=== PATIENT | female | born 1985 | race Caucasian/White ===

== ENCOUNTER → 2016-06-22 | Outpatient (CLI) | payer BC ==
--- NOTE | 2016-06-22 14:15 | KCIC ---
Examination: Ultrasound abdomen complete and ultrasound pelvis. HISTORY History of epigastric pain 3, pelvic pain. COMPARISON None under Findings: The uterus measures 12.0 x 5.3 x 5.8 centimeters. The endometrium measures 1.2 centimeters in transverse dimension. The right ovary measures 3.9 x 2.7 x 5.0 centimeters The left ovary measures 2.3 x 2.0 x 3.1 centimeters. Blood flow identified in the right and left ovaries. Small amount of free fluid identified in the cul-de-sac. In the right ovary, there is a complex appearing septated nodule with some vascularity identified measuring 3.1 x 2.7 x 3.6 centimeters. The visualized pancreas grossly appears unremarkable. The visualized aorta, IVC appear patent. The right lobe of the liver measures 16.7 centimeters. There is mild increased echogenicity noted throughout the liver likely hepatic steatosis. The right kidney measures 11.7 x 4.4 x 6.0 centimeters. The left kidney measures 11.5 x 4.9 x 4.7 centimeters. No evidence of gallstones identified. The gallbladder wall thickness measures 1.8 millimeters. The common bile duct measures 5.6 millimeters in transverse dimension. The spleen measures 10.2 centimeters in length. IMPRESSION - Complex appearing septated nodule identified in the right ovary measuring 3.1 x 2.7 x 3.6 centimeters with some vascular flow within, could be a complex cystic lesion or cyst containing thrombus or mass within. MRI pelvis is recommended for better evaluation. - Small amount of free fluid identified in the cul-de-sac. - Mild hepatic steatosis. - No evidence of gallstones. Electronically signed by: Kavin Davis (Jun 22, 2016 14:14:03)
== END | disposition home or self-care (01) ==
LOC: KCIC US 09:34
PROVIDERS: ATTEND Nurse Practitioner Family
DX: R10.13 Epigastric pain (principal); R53.83 Other fatigue
CPT/HCPCS: 76700; 76856

== ENCOUNTER 2016-08-02 07:35 | Observation (INO) | payer BC ==
[~2016-08-02] VITALS: Ht 157.5 cm; Wt 73.9 kg
[2016-08-02] VITALS (8 sets, daily range): BP systolic 107–116; BP diastolic 60–68
[~2016-08-02 07:35] MED LIST: BUPIVACAINE-EPI 0.25%-1:200000 MPF 30 ML VIAL. ONE; ESTROGENS, CONJ VAGINAL CREAM 30GM TUBE. ONE; HYDROmorphone 2 MG/ML VIAL IV PRN; IV RINGERS,LACTATED 1000ML 1,000 ML IV SCH; LIDOCAINE 1% 1 ML SYRINGE. ID PRN; LIDOCAINE 1%/EPI 1:100,000 20 ML VIAL. ONE; METHYLENE BLUE 1% 1 ML VIAL. ONE; MORPHINE SULFATE 2 MG/ML DISP.SYRIN. IV PRN; ONDANSETRON PF 4 MG/2 ML VIAL. IV PRN; PROCHLORPERAZINE 10 MG/2 ML VIAL. IV PRN; SURGICEL HEMOSTAT 4X8 EACH. ONE; fentaNYL PF VIAL 100 MCG/2 ML VIAL IV PRN
[2016-08-02 08:36] LABS: BASO # 0.1 x10^3/uL (0.0-0.2); BASO % 1 % (0-3); EOS % 7 % (0-3); HEMATOCRIT 39.5 % (36.0-47.0); HEMOGLOBIN 12.6 g/dL (12.0-15.5); LYMPH # 1.3 x10^3/uL (1.0-4.8); LYMPH % 22 % (24-48); MEAN CORPUSCULAR HEMOGLOBIN 25 pg (25-35); MEAN CORPUSCULAR HGB CONC 32 g/dL (31-37); MEAN CORPUSCULAR VOLUME 78 fL (79-100); MONO % 12 % (0-9); NEUT % 59 % (31-73); PLATELET COUNT 362 x10^3/uL (140-400); RED BLOOD COUNT 5.04 x10^6/uL (3.50-5.40); RED CELL DISTRIBUTION WIDTH 16.8 % (11.5-14.5); WHITE BLOOD COUNT 6.2 x10^3/uL (4.0-11.0)
[2016-08-02] MEDS ORDERED: LIDOCAINE 2% 100 MG/5 ML SYRINGE. ONE (09:14)
[2016-08-02] MEDS ORDERED: ROCURONIUM 50 MG/5 ML VIAL. ONE (09:14)
[2016-08-02] MEDS ORDERED: DEXAMETHASONE SOD PHOS 20 MG/5 ML VIAL. ONE (09:14)
[2016-08-02] MEDS ORDERED: fentaNYL PF VIAL 100 MCG/2 ML VIAL ONE ×2 (09:14→10:44)
[2016-08-02] MEDS ORDERED: ONDANSETRON PF 4 MG/2 ML VIAL. ONE (09:14)
[2016-08-02] MEDS ORDERED: MIDAZOLAM HCL/PF 2 MG/2 ML VIAL. ONE (09:14)
[2016-08-02] MEDS ORDERED: PROPOFOL 20 ML IV ONE (09:14)
[2016-08-02] MEDS ORDERED: FAMOTIDINE 20 MG/2 ML VIAL ONE (09:14)
[2016-08-02 09:20] LABS: NEG OBC UR NEG; POS OBC UR POS
[2016-08-02] MEDS ORDERED: ACETAMINOPHEN INTRAVENOUS 100 ML IV ONE (09:41)
[2016-08-02] MEDS ORDERED: PHENYLEPHRINE in 0.9% NACL PF 1 MG/10 ML DISP.SYRIN. IV ONE (09:45)
[2016-08-02] MEDS ORDERED: VASOPRESSIN 20 UNIT/ML VIAL. ONE (09:48)
[2016-08-02] MEDS ORDERED: 0.9 % SODIUM CHLORIDE 50 ML VIAL. IJ ONE (09:49)
[2016-08-02] MEDS ORDERED: ePHEDrine PF IN SALINE 50 MG/5 ML DISP.SYRIN IV ONE (09:52)
[2016-08-02] MEDS ORDERED: NEOSTIGMINE METHYLSULFATE 5 MG/5 ML SYRINGE. ONE (11:00)
[2016-08-02] MEDS ORDERED: GLYCOPYRROLATE 1 MG/5 ML VIAL. ONE (11:00)
[2016-08-02] MEDS ORDERED: diphenhydrAMINE 50 MG/ML VIAL ONE (11:14)
[2016-08-02] MEDS ORDERED: SEVOFLURANE > 120 MINUTES. IH ONE (11:36)
--- NOTE | 2016-08-02 11:39 | PDOC ---
BRIEF OPERATIVE NOTE Pre-Op Diagnosis 1. Fibroid 2. AUB 3. Dyspareunia 4. ROV Cyst Post-Op Diagnosis Same Procedure Performed TLH & RSO via [employer] Robot Surgeon Dr. Pack Home Manager Lani Anesthesia Type: General Blood Loss 25 ml Specimens Obtained uterus, cervix, RIght fallopian tube and ROV Findings enlarged fibroid uterus, nml fallopian tubes juventino., ROV cyst; nml ELIZABETH Complications none Additional Remarks pt. YOUNG Ibarra Jr, MD August 02, 2016 11:39
[2016-08-02] MEDS ORDERED: DEXTROSE 50% 25 GM / 50ML DISP.SYRIN. IV PRN (11:45)
[2016-08-02] MEDS ORDERED: ONDANSETRON PF 4 MG/2 ML VIAL. IV PRN (11:45)
[2016-08-02] MEDS ORDERED: CALCIUM CARBONATE 500 MG TAB.CHEW PO PRN (11:45)
[2016-08-02] MEDS ORDERED: PROCHLORPERAZINE 10 MG/2 ML VIAL. IV PRN (11:45)
[2016-08-02] MEDS ORDERED: OXYCODONE/APAP 5/325 TABLET. PO PRN (11:45)
[2016-08-02] MEDS ORDERED: KETOROLAC TROMETHAMINE 30 MG/ML INJ. IV PRN (11:45)
[2016-08-02] MEDS ORDERED: diphenhydrAMINE HCL 25 MG CAPSULE PO PRN (11:45)
[2016-08-02] MEDS ORDERED: 0.9 % SODIUM CHLORIDE 10 ML DISP.SYRIN. IV PRN (11:45)
[2016-08-02] MEDS ORDERED: SIMETHICONE 80 MG TAB.CHEW PO PRN (11:45)
[2016-08-02] MEDS ORDERED: diphenhydrAMINE 50 MG/ML VIAL IV PRN (11:45)
[2016-08-02] MEDS ORDERED: ZOLPIDEM 5 MG TABLET. PO PRN (11:45)
[2016-08-02] MEDS: fentaNYL PF VIAL 100 MCG/2 ML VIAL IV PRN ×2 (12:33→12:39)
--- NOTE | 2016-08-02 13:19 | OP ---
DATE OF SURGERY: 08/02/2016 PREOPERATIVE DIAGNOSES: 1. Fibroid uterus. 2. Abnormal uterine bleeding. 3. Dyspareunia. 4. Right ovarian cyst. POSTOPERATIVE DIAGNOSES: 1. Fibroid uterus. 2. Abnormal uterine bleeding. 3. Dyspareunia. 4. Right ovarian cyst. PROCEDURE: TLH, RSO via da Dianna robot. SURGEON: Young Pack MD MACHINE TOOL BUILDER: Lani. ANESTHESIA: GETA. ESTIMATED BLOOD LOSS: 25 mL. COMPLICATIONS: None. FINDINGS: Enlarged fibroid uterus. Normal fallopian tubes bilaterally, right ovarian cyst. Normal left ovary. SUMMARY: A 30-year-old female, who is unresponsive to medical treatment for abnormal uterine bleeding, fibroid uterus, dyspareunia and right ovarian cyst, required TLH and RSO via da Dianna robot. She was counseled on risks, benefits and expectations and voiced a clear understanding. DESCRIPTION OF PROCEDURE: The patient was taken to surgery suite and placed in dorsal lithotomy position. She was prepped with Betadine solution for vaginal prep and ChloraPrep for abdominal prep. After adequate anesthesia, bivalve speculum was placed vaginally. Anterior lip of the cervix grasped with a single tooth tenaculum. The ISAURO uterine manipulator was then placed. The single tooth tenaculum and bivalve speculum were removed. Attention was now placed on abdomen. Small transverse skin incision made just below the umbilicus with scalpel. Veress needle was then placed through the infraumbilical incision site. The abdomen was allowed to insufflate up to 1-1/2 liters CO2 gas. The Veress needle was then removed. The 8 mm camera trocar was then placed. The scope was positioned. The uterus was enlarged with multiple fibroids, fallopian tubes appeared normal bilaterally. Left ovary appeared normal. Right ovary demonstrated ovarian cyst, incision made in the right and left lower quadrant with a scalpel, in which 8 mm trocars were placed. An accessory port was placed in the left upper quadrant, which was a 5-mm port. The da Dianna robot was then docked in normal fashion. I then proceeded to the console. With the aid of the bipolar cautery and vessel sealer, the left round ligament was coagulated and dissected. The left utero-ovarian pedicle was coagulated and dissected. Left broad ligament and left uterine artery was coagulated and dissected. Bladder flap was partially created using blunt dissection along with the vessel sealer. The right round ligament was then coagulated and dissected. The right infundibulopelvic ligament was then coagulated and dissected. The right broad ligament and right uterine artery were coagulated and dissected. The rest of the bladder flap was then created with the vessel sealer. The spatula was utilized to perform the colpotomy at the level of the cervical ____. The cervix, uterus, right fallopian tube and ovary were then removed in their entirety. The vaginal cuff was reapproximated using a V-Loc suture in running fashion. Suction irrigation was utilized to verify good hemostasis. Small amount of normal saline was left in posterior cul-de-sac. The trocars were removed under direct visualization. The abdomen was allowed to deflate as much as possible along with mechanical manipulation. The four skin incisions were reapproximated using 4-0 Vicryl suture in subcuticular manner. A 0.25% Marcaine with epinephrine was injected at each incision site. Moist vaginal packing was placed vaginally. The patient tolerated the procedure well and was taken to recovery room in stable condition. Sponge and needle count were correct x 3. YOUNG PACK MD DR: MELANI/andrews JOB#: [id number] / [id number]
[2016-08-02] MEDS ORDERED: GABAPENTIN 300 MG CAPSULE. PO SCH (14:00)
[2016-08-03 00:36] VITALS: BP 106/67
[2016-08-03 04:48] LABS: BASO % 0 % (0-3); EOS % 0 % (0-3); HEMATOCRIT 31.7 % (36.0-47.0); HEMOGLOBIN 10.1 g/dL (12.0-15.5); LYMPH # 1.6 x10^3/uL (1.0-4.8); LYMPH % 11 % (24-48); MEAN CORPUSCULAR HEMOGLOBIN 25 pg (25-35); MEAN CORPUSCULAR HGB CONC 32 g/dL (31-37); MEAN CORPUSCULAR VOLUME 78 fL (79-100); MONO % 9 % (0-9); NEUT % 80 % (31-73); PLATELET COUNT 299 x10^3/uL (140-400); RED BLOOD COUNT 4.05 x10^6/uL (3.50-5.40); RED CELL DISTRIBUTION WIDTH 16.6 % (11.5-14.5); WHITE BLOOD COUNT 14.3 x10^3/uL (4.0-11.0)
[2016-08-03 06:29] VITALS: BP 113/68
[2016-08-03 13:32] VITALS: BP 87/52
--- NOTE | 2016-08-03 13:51 | PDOC ---
SURGICAL PROGRESS NOTE Subjective Pt. feeling well. She is tolerating regular diet, ambulating, voiding and passing flatus. Pain is controlled. Vital Signs Vital Signs Date Time Temp Pulse Resp B/P (MAP) Pulse Ox O2 Delivery O2 Flow Rate FiO2 08/03/16 13:32 98.2 84 18 87/52 (64) 99 Room Air 98.2 08/02/16 12:21 10 I&O Intake and Output 08/03/16 07:00 Intake Total 2980 ml Output Total 625 ml Balance 2355 ml Intake Oral 180 ml IV Total 2800 ml Output Urine Total 600 ml Estimated Blood Loss 25 ml PATIENT HAS A ENRIQUE: No General: Alert, Oriented X3, Cooperative HEENT: Atraumatic Lungs: Clear to auscultation Heart: Regular rate Abdomen: Normal bowel sounds, Soft, No masses Extremities: No edema Psych/Mental Status: Mental status NL Labs Laboratory Tests Test 08/02/16 08:01 08/02/16 08:25 08/03/16 04:30 Urine Test Negative (NEG) White Blood Count 6.2 x10^3/uL (4.0-11.0) 14.3 x10^3/uL (4.0-11.0) Red Blood Count 5.04 x10^6/uL (3.50-5.40) 4.05 x10^6/uL (3.50-5.40) Hemoglobin 12.6 g/dL (12.0-15.5) 10.1 g/dL (12.0-15.5) Hematocrit 39.5 % (36.0-47.0) 31.7 % (36.0-47.0) Mean Corpuscular Volume 78 fL (79-100) 78 fL (79-100) Mean Corpuscular Hemoglobin 25 pg (25-35) 25 pg (25-35) Mean Corpuscular Hemoglobin Concent 32 g/dL (31-37) 32 g/dL (31-37) Red Cell Distribution Width 16.8 % (11.5-14.5) 16.6 % (11.5-14.5) Platelet Count 362 x10^3/uL (140-400) 299 x10^3/uL (140-400) Neutrophils (%) (Auto) 59 % (31-73) 80 % (31-73) Lymphocytes (%) (Auto) 22 % (24-48) 11 % (24-48) Monocytes (%) (Auto) 12 % (0-9) 9 % (0-9) Eosinophils (%) (Auto) 7 % (0-3) 0 % (0-3) Basophils (%) (Auto) 1 % (0-3) 0 % (0-3) Neutrophils # (Auto) 3.6 x10^3uL (1.8-7.7) 11.5 x10^3uL (1.8-7.7) Lymphocytes # (Auto) 1.3 x10^3/uL (1.0-4.8) 1.6 x10^3/uL (1.0-4.8) Monocytes # (Auto) 0.7 x10^3/uL (0.0-1.1) 1.2 x10^3/uL (0.0-1.1) Eosinophils # (Auto) 0.4 x10^3/uL (0.0-0.7) 0.0 x10^3/uL (0.0-0.7) Basophils # (Auto) 0.1 x10^3/uL (0.0-0.2) 0.0 x10^3/uL (0.0-0.2) Laboratory Tests Test 08/03/16 04:30 White Blood Count 14.3 x10^3/uL (4.0-11.0) Red Blood Count 4.05 x10^6/uL (3.50-5.40) Hemoglobin 10.1 g/dL (12.0-15.5) Hematocrit 31.7 % (36.0-47.0) Mean Corpuscular Volume 78 fL (79-100) Mean Corpuscular Hemoglobin 25 pg (25-35) Mean Corpuscular Hemoglobin Concent 32 g/dL (31-37) Red Cell Distribution Width 16.6 % (11.5-14.5) Platelet Count 299 x10^3/uL (140-400) Neutrophils (%) (Auto) 80 % (31-73) Lymphocytes (%) (Auto) 11 % (24-48) Monocytes (%) (Auto) 9 % (0-9) Eosinophils (%) (Auto) 0 % (0-3) Basophils (%) (Auto) 0 % (0-3) Neutrophils # (Auto) 11.5 x10^3uL (1.8-7.7) Lymphocytes # (Auto) 1.6 x10^3/uL (1.0-4.8) Monocytes # (Auto) 1.2 x10^3/uL (0.0-1.1) Eosinophils # (Auto) 0.0 x10^3/uL (0.0-0.7) Basophils # (Auto) 0.0 x10^3/uL (0.0-0.2) Assessment/Plan A: POD#1 s/p TLH & RSO P: D/c home. Problems: YOUNG RAMSAY Jr, MD August 03, 2016 13:51
--- NOTE | 2016-08-03 13:52 | DISCH ---
DISCHARGE INSTRUCTIONS Condition on Discharge Condition on Discharge: Stable Activity After Discharge Activity Instructions for Disc: Activity as tolerated Lifting Instructions after Dis: No heavy lifting Driving Instructions after Dis: Do not drive today Diet after Discharge Diet Texture: Regular Contacting the DRJaquelin after DC Call your doctor for: Concerns you may have Follow-Up Follow up with: Dr. Pack in 2 weeks. YOUNG PACK Jr, MD August 03, 2016 13:52
[2016-08-03] MEDS ORDERED: DOCU-27 PO (13:53)
[2016-08-03] MEDS ORDERED: IBUP-1060 PO (13:53)
[2016-08-03] MEDS ORDERED: OXYC-323 PO (13:53)
--- NOTE | 2016-08-06 13:30 | PATHOLOGY ---
PATHOLOGY REPORT * * * * * * * * FINAL DIAGNOSIS: Uterus and right fallopian tube and ovary, robotic laparoscopic hysterectomy with right salpingo-oophorectomy: - Adenomyosis, uterine corpus, subbasal, with mild myometrial hypertrophy (uterine weight 128 grams). - Mild chronic cervicitis with focal squamous metaplasia. - Nabothian cysts, cervix. - Subserosal cystic Walthard rests and focal foreign body granulomatous reaction of fallopian tube. - Hemorrhagic corpus luteum cyst, few cystic follicles, and focal organizing hemorrhage of ovary. COMMENT: There is no evidence of malignancy. (JPM:; d/t: 08/06/16) REPORT ELECTRONICALLY SIGNED BY: Gilberto Hannah M.D. DATE/TIME: 08/06/2016 13:21 * * * * * * * * GROSS PATHOLOGY: Received in formalin labeled Cobbuterus, cervix, right fallopian tube and ovary is a hysterectomy specimen including uterus, cervix, right fallopian tube and ovary. The specimen weighs 128 g and measures 8.2 cm superior to inferior, 5.4 cm cornu to cornu, and 4.1 cm, anterior to posterior. The serosa is hernandez-brown and smooth. The hernandez-white glistening exocervix measures 3.5 x 3.3 cm with a 1.4 cm centrally located ovoid cervical os. The specimen is bivalved to reveal a patent trabeculated endocervical canal and a hernandez-pink triangular endometrium. Sectioning through the specimen reveals an endometrium that is 0.2 cm in thickness and a myometrium that is up to 2.4 cm in thickness. The hernandez-pink, trabeculated myometrium is well-demarcated. No distinct fibroids are identified in the specimen. The right fallopian tube including fimbriated end measures 5.7 cm in length by up to 0.7 cm in diameter. The outer surface of the specimen is grossly unremarkable and the specimen is sectioned to reveal a diffusely patent lumen. The right ovary is hernandez-white, ovoid and measures 4.2 x 2.3 x 1.4 cm. The specimen is sectioned to reveal several clear to brown fluid filled cystic cavities ranging in size from 0.2 x 0.2 x 0.2 cm up to 0.5 x 0.4 x 0.4 cm. Section code: W9mfhbod 12:00, C6nqddwg, 6:00, A3 and K9uaavkjif uterus, A5 and P9xpferqunm uterus, F3svlwc fallopian tube, U2fjvfe ovary. (AKA; 08/03/2016) INITIAL CPT CODE(S): A; 62482 Professional services [place] [facility] [place] [address] Technical services performed by [facility] at [address] [place] [address], [address], [place] [address]. SPECIMEN(S) RECEIVED: A.Uterus, cervix, and right fallopian tube and ovary CLINICAL HISTORY: Fibroid, AUB PATIENT: DAVE MANUEL /AGE: 609/24/1985 (Age: 30) PATIENT #: [id number] ALT CASE #: SPECIMEN COLLECTION DATE: 08/02/2016 SPECIMEN RECEIVED DATE: 08/02/2016 [facility] - [id number] [place] [address] - PHONE: [phone] * * * END OF REPORT * * *
== END 2016-08-03 15:12 | disposition home or self-care (01) ==
LOC: SURG 07:35 → 3 NORTH 11:50
PROVIDERS: ADMIT Obstetrics & Gynecology; ATTEND Obstetrics & Gynecology
DX: D25.9 Leiomyoma of uterus, unspecified (principal); N93.9 Abnormal uterine and vaginal bleeding, unspecified; N94.10 Unspecified dyspareunia; N83.201 Unspecified ovarian cyst, right side
CPT/HCPCS: 36415; 58571; 81025; 85027; 86850; 86900; 86901; 96374; 96375; A4215; G0378; G0379; J0131; J0690; J0780; J1100; J1200; J1885; J2250; J2370; J2405; J2704; J2710; J3010; J3490; J7030; J7120; S0028; S2900; 88307; Q9968